=== PATIENT | female | born 1955 | race Caucasian/White ===

== ENCOUNTER 2018-04-16 07:30 | Inpatient (IN) | payer OTHER ==
[~2018-04-16] VITALS: Ht 152.4 cm; Wt 77.1 kg
[2018-04-16] MEDS ORDERED: CARDURA PO (09:52)
[2018-04-16] MEDS ORDERED: AVALIDE 300-121 EACH PO (09:52)
[2018-04-16] MEDS ORDERED: LASIX20 MG PO (09:53)
[2018-04-16] MEDS ORDERED: ZOCOR40 MG PO (09:55)
[2018-04-16] MEDS ORDERED: SYNTHROID88 MCG PO (09:55)
[2018-04-16] MEDS ORDERED: NORVASC10 MG PO (09:56)
[2018-04-16] MEDS ORDERED: CLONAZEPAM0.5 MG PO (09:56)
== END 2018-04-20 11:47 | disposition home or self-care (01) | DRG 460 ==
LOC: O/R 04-19 05:30 → PED 04-19 05:30 → SURH 04-19 07:00 → PED 04-19 17:50
PROVIDERS: Orthopaedic Surgery
PROC: 0ST40ZZ Resection of Lumbosacral Disc, Open Approach (ICD-10-PCS; 2018-04-19)
PROC: 3E0F7GC Introduction of Other Therapeutic Substance into Respiratory Tract, Via Natural or Artificial Opening (ICD-10-PCS; 2018-04-19)
PROC: 00NY0ZZ Release Lumbar Spinal Cord, Open Approach (ICD-10-PCS; principal; 2018-04-19 07:00)
PROC: 0SG00AJ Fusion of Lumbar Vertebral Joint with Interbody Fusion Device, Posterior Approach, Anterior Column, Open Approach (ICD-10-PCS; 2018-04-19 07:00)
DX: M48.061 Spinal stenosis, lumbar region without neurogenic claudication (principal); M51.36 Other intervertebral disc degeneration, lumbar region; M47.817 Spondylosis without myelopathy or radiculopathy, lumbosacral region; M43.16 Spondylolisthesis, lumbar region; I11.9 Hypertensive heart disease without heart failure; E03.8 Other specified hypothyroidism; E78.00 Pure hypercholesterolemia, unspecified; J45.20 Mild intermittent asthma, uncomplicated; F41.8 Other specified anxiety disorders